=== PATIENT | male | born 1930 | race Caucasian/White ===

== ENCOUNTER 2018-08-26 11:50 | Inpatient (IN) | payer MEDICARE, OTHER ==
[~2018-08-26] VITALS: Ht 193 cm; Wt 123.5 kg
[2018-08-26] MEDS ORDERED: aspirin 325mg tablet PO ONE (12:20)
[2018-08-26] MEDS ORDERED: nitroGLYCERIN 0.4mg SUBLingual tab SL PRN ×3 (12:20→14:05)
[2018-08-26] MEDS ORDERED: ondansetron/PF 4mg/2ml inj IV ONE (12:20)
[2018-08-26 12:38] LABS: BASOPHILS % (AUTO) 0.2 % (0-1); EOSINOPHILS # (AUTO) 0.3 X10'3 (0-0.9); EOSINOPHILS % (AUTO) 2.6 % (0-6); HEMATOCRIT 38.4 % (42.0-52.0); HEMOGLOBIN 12.8 g/dl (14.0-17.9); LYMPHOCYTES # (AUTO) 2.1 X10'3 (1.1-4.8); LYMPHOCYTES % (AUTO) 20.9 % (21-51); MEAN CORPUSCULAR HEMOGLOBIN 31.8 PG (27.0-31.0); MEAN CORPUSCULAR HGB CONC 33.4 % (33.0-36.5); MEAN CORPUSCULAR VOLUME 95.3 FL (78-98); MEAN PLATELET VOLUME 8.7 FL (7.4-10.4); MONOCYTES # (AUTO) 0.7 X10'3 (0-0.9); MONOCYTES % (AUTO) 7.4 % (2-12); NEUTROPHILS # (AUTO) 6.8 X10'3 (1.8-7.7); NEUTROPHILS % (AUTO) 68.9 % (42-75); PLATELET COUNT 265 X10'3 (140-440); RED BLOOD COUNT 4.02 X10'6 (4.70-6.10); RED CELL DISTRIBUTION WIDTH 13.9 % (11.5-14.5); WHITE BLOOD COUNT 9.9 X10'3 (4.5-11.0)
[2018-08-26 12:59] LABS: D-DIMER 3.64 MG/L FEU (0-0.50); INR 1.1 INR; PARTIAL THROMBOPLASTIN TIME 32 SECONDS (22-32); PROTHROMBIN TIME 11.1 SECONDS (9.0-12.0)
[2018-08-26 13:07] LABS: ANION GAP 9 (8-16); BLOOD UREA NITROGEN 34 MG/DL (7-18); CHLORIDE 103 MMOL/L (99-107); GLUCOSE 133 MG/DL (70-104); POTASSIUM 5.2 MMOL/L (3.5-5.1); SODIUM 139 MMOL/L (135-145); TOTAL CARBON DIOXIDE 27.3 MMOL/L (24-32)
[2018-08-26 13:08] LABS: ALANINE AMINOTRANSFERASE 17 U/L (12-78); ALBUMIN 3.5 G/DL (3.4-5.0); ALKALINE PHOSPHATASE 62 IU/L (46-116); ASPARTATE AMINO TRANSFERASE 15 U/L (10-37); BILIRUBIN,TOTAL 0.9 MG/DL (0.1-1.0); BUN/CREATININE RATIO 13.6 (5.4-32.0); CALCIUM 8.9 MG/DL (8.5-10.1); TOTAL PROTEIN 7.1 G/DL (6.4-8.2); eGFR 25 ML/MIN
[2018-08-26] MEDS ORDERED: heparin 10,000 units/1 ML INJ IV PRN ×2 (13:35→14:05)
[2018-08-26] MEDS ORDERED: fentaNYL/PF 50MCG/1 ML 2ML syringe IV ONE (13:35)
[2018-08-26] MEDS ORDERED: heparin 10,000 units/1 ML INJ IV ONE (13:35)
[2018-08-26] MEDS: heparin 25,000 UNIT/250ml bag 250 ML IV SCH ×2 (13:52→22:04)
[2018-08-26] MEDS ORDERED: heparin 25,000 UNIT/250ml bag 250 ML IV SCH (14:02)
[2018-08-26] MEDS ORDERED: magnesium Cl slow-release 64mg tablet PO PRN (14:05)
[2018-08-26] MEDS ORDERED: morphine 2 MG/ML inj. syringe IV PRN ×2 (14:05)
[2018-08-26] MEDS ORDERED: magnesium 4gm in 100ml NS 100 ML IV PRN (14:05)
[2018-08-26] MEDS ORDERED: potassium Cl 20 mEq SR tablet PO PRN ×2 (14:05)
[2018-08-26] MEDS ORDERED: acetaminophen 325mg tablet PO PRN ×2 (14:05)
[2018-08-26] MEDS ORDERED: potassium Cl 40MEQ/NS 500ml 500 ML IV PRN ×2 (14:05)
[2018-08-26] MEDS ORDERED: magnesium hydroxide 30ml (MOM) UD suspension PO PRN (14:05)
[2018-08-26] MEDS ORDERED: regadenoson 0.4mg/5ml syringe IV PRN (14:05)
[2018-08-26] MEDS ORDERED: magnesium 1gm/100ml D5W IVPB 100 ML IV PRN (14:05)
[2018-08-26] MEDS ORDERED: aminophylline 250mg/10ml inj. IV PRN (14:05)
[2018-08-26] MEDS ORDERED: metoprolol tartrate 1mg/ml inj IV PRN (14:05)
[2018-08-26] MEDS: normal saline 1000ml 1,000 ML IV SCH (14:35)
[2018-08-26] MEDS ORDERED: ATOR20TA PO (15:32)
[2018-08-26] MEDS ORDERED: LEVO125T PO (15:32)
[2018-08-26] MEDS ORDERED: FAMO-128 PO (15:33)
[2018-08-26] MEDS ORDERED: CLOP75TA15 PO (15:33)
[2018-08-26] MEDS ORDERED: RAMI2.5C2 PO (15:34)
[2018-08-26] MEDS ORDERED: DRON400T2 PO (15:35)
[2018-08-26] MEDS ORDERED: DABI75CA3 PO (15:35)
[2018-08-26] MEDS ORDERED: CARV-50 PO (15:36)
[2018-08-26] MEDS ORDERED: B CO1TAB7 PO (15:37)
[2018-08-26] MEDS ORDERED: [UNRECOGNIZED DRUG - CODE] (15:37)
[2018-08-26] MEDS ORDERED: PSYL3.4P5 PO (15:39)
[2018-08-26] MEDS ORDERED: VIT1CAPS46 PO (15:39)
[2018-08-26 15:41] LABS: CLARITY,URINE CLEAR (Clear); COLOR,URINE YELLOW (Yellow); GLUCOSE, URINE NEGATIVE (Neg); KETONES,URINE NEGATIVE (Neg); LEUKOCYTE ESTERASE ,URINE NEGATIVE (Neg); NITRITES, URINE NEGATIVE (Neg); OCCULT BLOOD,URINE NEGATIVE (Neg); PH,URINE 5.5 (4.8-8.0); PROTEIN,URINE 30 mg/dl (Neg); UROBILINOGEN,URINE 0.2 E.U/dL (0.2-1.0)
[2018-08-26 15:42] LABS: UA COLLECTION TYPE CLN CATCH MIDSTREAM
[2018-08-26 15:51] LABS: HYALINE CASTS 0-3 /LPF (NEGATIVE); MUCUS STRANDS FEW /LPF (Neg); SQUAMOUS EPITHELIAL CELL,UR FEW /LPF (FEW)
[2018-08-26 15:52] LABS: BACTERIA,URINE NONE SEEN /HPF (Neg); RBC,URINE 0-2 /HPF (0-2); WBC,URINE 0-4 /HPF (0-4)
[2018-08-26 17:00] VITALS: BP 112/79
[2018-08-26] MEDS ORDERED: tirofiban 5mg in NS 100mL 100 ML IV SCH (18:35)
[2018-08-26] MEDS: tirofiban 5mg in NS 100mL 100 ML IV SCH ×2 (18:50→19:36)
[2018-08-26 19:00] VITALS: BP 116/71
[2018-08-26] MEDS: famotidine 20mg tablet PO SCH (19:50)
[2018-08-26] MEDS: beta-carotene(A) w/C & E + minerals tab PO SCH (19:51)
[2018-08-26] MEDS: dronedarone hcl 400mg tablet PO SCH (19:51)
[2018-08-26] MEDS: carVEDilol 12.5mg tablet PO SCH (19:52)
[2018-08-26] MEDS: lisinopril 5mg tablet PO SCH (19:53)
[2018-08-26] MEDS ORDERED: temazepam 15mg capsule PO PRN (21:00)
[2018-08-26 23:00] VITALS: BP 111/77
[2018-08-27] VITALS (18 sets, daily range): BP systolic 77–162; BP diastolic 52–96
[2018-08-27 00:58] LABS: BASOPHILS % (AUTO) 0.2 % (0-1); EOSINOPHILS # (AUTO) 0.1 X10'3 (0-0.9); EOSINOPHILS % (AUTO) 1.4 % (0-6); HEMATOCRIT 36.3 % (42.0-52.0); HEMOGLOBIN 12.5 g/dl (14.0-17.9); LYMPHOCYTES # (AUTO) 2.1 X10'3 (1.1-4.8); LYMPHOCYTES % (AUTO) 19.6 % (21-51); MEAN CORPUSCULAR HEMOGLOBIN 32.6 PG (27.0-31.0); MEAN CORPUSCULAR HGB CONC 34.4 % (33.0-36.5); MEAN CORPUSCULAR VOLUME 94.7 FL (78-98); MEAN PLATELET VOLUME 9.3 FL (7.4-10.4); MONOCYTES # (AUTO) 0.8 X10'3 (0-0.9); MONOCYTES % (AUTO) 7.1 % (2-12); NEUTROPHILS # (AUTO) 7.6 X10'3 (1.8-7.7); NEUTROPHILS % (AUTO) 71.7 % (42-75); PLATELET COUNT 239 X10'3 (140-440); RED BLOOD COUNT 3.83 X10'6 (4.70-6.10); RED CELL DISTRIBUTION WIDTH 13.2 % (11.5-14.5); WHITE BLOOD COUNT 10.6 X10'3 (4.5-11.0)
[2018-08-27 01:06] LABS: ALBUMIN 3.2 G/DL (3.4-5.0); ANION GAP 10 (8-16); BLOOD UREA NITROGEN 35 MG/DL (7-18); BUN/CREATININE RATIO 13.3 (5.4-32.0); CALCIUM 8.1 MG/DL (8.5-10.1); CHLORIDE 102 MMOL/L (99-107); CHOL/HDL RATIO 2.2 (0.00-4.99); CHOLESTEROL 89 MG/DL (0-200); CREATININE 2.64 MG/DL (0.60-1.10); GLUCOSE 109 MG/DL (70-104); HDL CHOLESTEROL 41 MG/DL (35-60); LDL CHOLESTEROL 36 MG/DL (50-100); POTASSIUM 4.3 MMOL/L (3.5-5.1); SODIUM 139 MMOL/L (135-145); TOTAL CARBON DIOXIDE 26.7 MMOL/L (24-32); TRIGLYCERIDES 129 MG/DL (20-135); eGFR 23 ML/MIN
[2018-08-27] MEDS ORDERED: sodium bicarbonate (8.4%) 1 mEq/ml syringe IV SCH (01:45)
[2018-08-27] MEDS ORDERED: acetylcysteine 200 MG/ml 4ml vial PO ONE (01:55)
[2018-08-27] MEDS: sodium bicarbonate (8.4%) inj. 150 MEQ in sodium chloride 0.45% 1,000 ML IV SCH ×2 (02:40→17:34)
[2018-08-27] MEDS: tirofiban 5mg in NS 100mL 100 ML IV SCH ×3 (06:00→23:03)
[2018-08-27] MEDS ORDERED: nitroGLYCERIN-Tridil 50MG/D5W 250 ML IV ONE (06:18)
[2018-08-27] MEDS ORDERED: midazolam 2 mg/2 ml injection ONE (06:19)
[2018-08-27] MEDS ORDERED: iohexol 350MG/ML 100ml bottle IV ONE ×2 (06:19→07:19)
[2018-08-27] MEDS ORDERED: LIDOcaine 1% (10mg/ml)w/preservative injection 20ml MDV ONE (06:19)
[2018-08-27] MEDS ORDERED: fentaNYL/PF 50MCG/1 ML 2ML syringe ONE (06:19)
[2018-08-27] MEDS ORDERED: heparin 1,000unit/ml 10ml vial 10 ML ONE ×2 (06:19→08:32)
[2018-08-27] MEDS ORDERED: iohexol 350 MG/ML 50ML vial IV ONE ×2 (06:19→08:06)
[2018-08-27] MEDS: psyllium seed 3.4 gm packet PO SCH (08:00)
[2018-08-27] MEDS: K and/or MAG REPLACEMENT MC SCH (08:00)
[2018-08-27] MEDS ORDERED: clopidogrel 75mg tablet PO SCH (08:00)
[2018-08-27] MEDS ORDERED: DOBUTamine-DoBUTrex 500mg/D5W 250 ML IV ONE (08:21)
[2018-08-27] MEDS ORDERED: aspirin 325mg tablet PO SCH (08:30)
[2018-08-27] MEDS ORDERED: ticagrelor 90mg tablet ONE (08:32)
[2018-08-27 09:06] LABS: ISTAT Hct MIX 30 %PCV (42-52); ISTAT O2 SATURATION MIX VENOUS 47 % (60-80); ISTAT SOURCE MIX
[2018-08-27 09:06] LABS: ISTAT HGB ART 10.5 g/dl (14.0-18.0); ISTAT Hct ART 31 %PCV (42-52); ISTAT O2 SATURATION ARTERIAL 95 % (95-98); ISTAT SOURCE ART
[2018-08-27 12:08] LABS: CHOL/HDL RATIO 2.4 (0.00-4.99); CHOLESTEROL 86 MG/DL (0-200); HDL CHOLESTEROL 36 MG/DL (35-60); LDL CHOLESTEROL 32 MG/DL (50-100); TRIGLYCERIDES 135 MG/DL (20-135)
[2018-08-27] MEDS: DOBUTamine 2000 MCG/250ML BAG IV SCH ×2 (12:56→20:27)
[2018-08-27] MEDS: carVEDilol 12.5mg tablet PO SCH ×2 (13:05→20:00)
[2018-08-27] MEDS: atorvastatin 20mg tablet PO SCH (13:05)
[2018-08-27] MEDS: famotidine 20mg tablet PO SCH ×2 (13:05→20:23)
[2018-08-27] MEDS: beta-carotene(A) w/C & E + minerals tab PO SCH ×2 (13:05→20:31)
[2018-08-27] MEDS: levoTHYROXINE 125mcg tablet PO SCH (13:06)
[2018-08-27] MEDS: lisinopril 5mg tablet PO SCH ×2 (13:06→20:00)
[2018-08-27] MEDS ORDERED: aspirin 81mg tab.chew PO ONE (13:25)
[2018-08-27] MEDS: dronedarone hcl 400mg tablet PO SCH ×2 (14:26→20:22)
[2018-08-27] MEDS: acetylcysteine 200 MG/ml 4ml vial PO SCH ×2 (14:27→20:24)
[2018-08-27] MEDS: ticagrelor 90mg tablet PO SCH (20:22)
[2018-08-27] MEDS: ondansetron/PF 4mg/2ml inj IV PRN (21:13)
[2018-08-27] MEDS: mag hydrox/Alum hydrox/simeth 30ml oral suspension PO PRN (22:10)
[2018-08-28] VITALS (24 sets, daily range): BP systolic 80–104; BP diastolic 55–68
[2018-08-28 02:44] LABS: BASOPHILS % (AUTO) 0 % (0-1); EOSINOPHILS # (AUTO) 0.1 X10'3 (0-0.9); EOSINOPHILS % (AUTO) 1.3 % (0-6); HEMATOCRIT 28.8 % (42.0-52.0); HEMOGLOBIN 9.7 g/dl (14.0-17.9); LYMPHOCYTES # (AUTO) 0.7 X10'3 (1.1-4.8); LYMPHOCYTES % (AUTO) 7.4 % (21-51); MEAN CORPUSCULAR HEMOGLOBIN 31.9 PG (27.0-31.0); MEAN CORPUSCULAR HGB CONC 33.8 % (33.0-36.5); MEAN CORPUSCULAR VOLUME 94.3 FL (78-98); MEAN PLATELET VOLUME 9.1 FL (7.4-10.4); MONOCYTES # (AUTO) 0.6 X10'3 (0-0.9); MONOCYTES % (AUTO) 6.2 % (2-12); NEUTROPHILS # (AUTO) 8.2 X10'3 (1.8-7.7); NEUTROPHILS % (AUTO) 85.1 % (42-75); PLATELET COUNT 205 X10'3 (140-440); RED BLOOD COUNT 3.06 X10'6 (4.70-6.10); WHITE BLOOD COUNT 9.6 X10'3 (4.5-11.0)
[2018-08-28 03:04] LABS: ALBUMIN 2.6 G/DL (3.4-5.0); ANION GAP 9 (8-16); BLOOD UREA NITROGEN 34 MG/DL (7-18); BUN/CREATININE RATIO 13.5 (5.4-32.0); CALCIUM 7.7 MG/DL (8.5-10.1); CHLORIDE 102 MMOL/L (99-107); CHOL/HDL RATIO 2.5 (0.00-4.99); CHOLESTEROL 80 MG/DL (0-200); CREATININE 2.52 MG/DL (0.60-1.10); GLUCOSE 133 MG/DL (70-104); HDL CHOLESTEROL 32 MG/DL (35-60); LDL CHOLESTEROL 34 MG/DL (50-100); POTASSIUM 4.1 MMOL/L (3.5-5.1); SODIUM 140 MMOL/L (135-145); TOTAL CARBON DIOXIDE 29.2 MMOL/L (24-32); TRIGLYCERIDES 124 MG/DL (20-135); eGFR 24 ML/MIN
[2018-08-28] MEDS: K and/or MAG REPLACEMENT MC SCH (08:00)
[2018-08-28] MEDS: lisinopril 5mg tablet PO SCH ×2 (08:00→20:00)
[2018-08-28] MEDS: carVEDilol 12.5mg tablet PO SCH ×2 (08:00→20:00)
[2018-08-28] MEDS: psyllium seed 3.4 gm packet PO SCH (08:12)
[2018-08-28] MEDS: beta-carotene(A) w/C & E + minerals tab PO SCH ×2 (08:12→20:31)
[2018-08-28] MEDS: famotidine 20mg tablet PO SCH ×2 (08:12→20:31)
[2018-08-28] MEDS: sodium bicarbonate (8.4%) inj. 150 MEQ in sodium chloride 0.45% 1,000 ML IV SCH (08:12)
[2018-08-28] MEDS: dronedarone hcl 400mg tablet PO SCH ×2 (08:12→20:31)
[2018-08-28] MEDS: atorvastatin 20mg tablet PO SCH (08:13)
[2018-08-28] MEDS: ticagrelor 90mg tablet PO SCH ×2 (08:13→20:31)
[2018-08-28] MEDS: levoTHYROXINE 125mcg tablet PO SCH (08:13)
[2018-08-28] MEDS: aspirin 81mg tab.chew PO SCH (08:13)
[2018-08-28] MEDS: acetylcysteine 200 MG/ml 4ml vial PO SCH ×2 (08:14→20:32)
[2018-08-28] MEDS: tirofiban 5mg in NS 100mL 100 ML IV SCH (08:19)
[2018-08-28] MEDS: DOBUTamine 2000 MCG/250ML BAG IV SCH (12:41)
[2018-08-28] MEDS: normal saline 1000ml 1,000 ML IV SCH (14:02)
[2018-08-28] MEDS: mag hydrox/Alum hydrox/simeth 30ml oral suspension PO PRN (20:43)
[2018-08-29] VITALS (19 sets, daily range): BP systolic 87–113; BP diastolic 45–74
[2018-08-29] MEDS: tirofiban 5mg in NS 100mL 100 ML IV SCH (03:15)
[2018-08-29] MEDS: DOBUTamine 2000 MCG/250ML BAG IV SCH (03:56)
[2018-08-29 05:05] LABS: BASOPHILS % (AUTO) 0.2 % (0-1); EOSINOPHILS # (AUTO) 0.2 X10'3 (0-0.9); EOSINOPHILS % (AUTO) 2.1 % (0-6); HEMATOCRIT 26.7 % (42.0-52.0); HEMOGLOBIN 8.9 g/dl (14.0-17.9); LYMPHOCYTES # (AUTO) 1.5 X10'3 (1.1-4.8); LYMPHOCYTES % (AUTO) 15.4 % (21-51); MEAN CORPUSCULAR HEMOGLOBIN 31.8 PG (27.0-31.0); MEAN CORPUSCULAR HGB CONC 33.3 % (33.0-36.5); MEAN CORPUSCULAR VOLUME 95.4 FL (78-98); MEAN PLATELET VOLUME 9.1 FL (7.4-10.4); MONOCYTES % (AUTO) 10.3 % (2-12); NEUTROPHILS # (AUTO) 6.9 X10'3 (1.8-7.7); PLATELET COUNT 190 X10'3 (140-440); RED BLOOD COUNT 2.79 X10'6 (4.70-6.10); RED CELL DISTRIBUTION WIDTH 14.1 % (11.5-14.5); WHITE BLOOD COUNT 9.6 X10'3 (4.5-11.0)
[2018-08-29 05:33] LABS: ALBUMIN 2.7 G/DL (3.4-5.0); ANION GAP 8 (8-16); BLOOD UREA NITROGEN 38 MG/DL (7-18); BUN/CREATININE RATIO 14.6 (5.4-32.0); CALCIUM 8.2 MG/DL (8.5-10.1); CHLORIDE 100 MMOL/L (99-107); CREATININE 2.61 MG/DL (0.60-1.10); GLUCOSE 101 MG/DL (70-104); MAGNESIUM 2.2 MG/DL (1.5-2.4); POTASSIUM 3.8 MMOL/L (3.5-5.1); SODIUM 136 MMOL/L (135-145); eGFR 23 ML/MIN
[2018-08-29] MEDS: K and/or MAG REPLACEMENT MC SCH (07:08)
[2018-08-29] MEDS: famotidine 20mg tablet PO SCH ×2 (07:41→21:10)
[2018-08-29] MEDS: dronedarone hcl 400mg tablet PO SCH ×2 (07:41→21:09)
[2018-08-29] MEDS: ticagrelor 90mg tablet PO SCH ×2 (07:41→21:09)
[2018-08-29] MEDS: aspirin 81mg tab.chew PO SCH (07:41)
[2018-08-29] MEDS: atorvastatin 20mg tablet PO SCH (07:41)
[2018-08-29] MEDS: beta-carotene(A) w/C & E + minerals tab PO SCH ×2 (07:42→21:09)
[2018-08-29] MEDS: psyllium seed 3.4 gm packet PO SCH (07:42)
[2018-08-29] MEDS: acetylcysteine 200 MG/ml 4ml vial PO SCH ×2 (07:42→21:10)
[2018-08-29] MEDS: levoTHYROXINE 125mcg tablet PO SCH (07:42)
[2018-08-29] MEDS: lisinopril 5mg tablet PO SCH ×2 (08:00→21:09)
[2018-08-29] MEDS: carVEDilol 12.5mg tablet PO SCH ×2 (08:00→21:10)
[2018-08-29] MEDS ORDERED: DOBUTamine-DoBUTrex 500mg/D5W 250 ML IV ONE (09:14)
[2018-08-29] MEDS: mag hydrox/Alum hydrox/simeth 30ml oral suspension PO PRN ×2 (17:09→21:07)
[2018-08-29] MEDS: apixaban 5mg tablet PO SCH (21:10)
[2018-08-30] VITALS (18 sets, daily range): BP systolic 84–139; BP diastolic 53–99
[2018-08-30 02:08] LABS: HEMATOCRIT 28.2 % (42.0-52.0); HEMOGLOBIN 9.6 g/dl (14.0-17.9); MEAN CORPUSCULAR HEMOGLOBIN 32.4 PG (27.0-31.0); MEAN CORPUSCULAR HGB CONC 33.9 % (33.0-36.5); MEAN CORPUSCULAR VOLUME 95.7 FL (78-98); MEAN PLATELET VOLUME 9.1 FL (7.4-10.4); PLATELET COUNT 205 X10'3 (140-440); RED BLOOD COUNT 2.95 X10'6 (4.70-6.10); RED CELL DISTRIBUTION WIDTH 12.9 % (11.5-14.5)
[2018-08-30 02:23] LABS: ALBUMIN 2.9 G/DL (3.4-5.0); ANION GAP 9 (8-16); BLOOD UREA NITROGEN 39 MG/DL (7-18); BUN/CREATININE RATIO 13.9 (5.4-32.0); CALCIUM 8.3 MG/DL (8.5-10.1); CHLORIDE 98 MMOL/L (99-107); CREATININE 2.81 MG/DL (0.60-1.10); GLUCOSE 114 MG/DL (70-104); MAGNESIUM 2.3 MG/DL (1.5-2.4); POTASSIUM 4.3 MMOL/L (3.5-5.1); SODIUM 134 MMOL/L (135-145); TOTAL CARBON DIOXIDE 27.3 MMOL/L (24-32); eGFR 21 ML/MIN
[2018-08-30 07:38] LABS: BASOPHILS % (AUTO) 0.4 % (0-1); EOSINOPHILS # (AUTO) 0.2 X10'3 (0-0.9); EOSINOPHILS % (AUTO) 1.8 % (0-6); HEMATOCRIT 27.6 % (42.0-52.0); HEMOGLOBIN 9.2 g/dl (14.0-17.9); LYMPHOCYTES # (AUTO) 1.5 X10'3 (1.1-4.8); LYMPHOCYTES % (AUTO) 14.3 % (21-51); MEAN CORPUSCULAR HEMOGLOBIN 31.7 PG (27.0-31.0); MEAN CORPUSCULAR HGB CONC 33.1 % (33.0-36.5); MEAN CORPUSCULAR VOLUME 95.6 FL (78-98); MEAN PLATELET VOLUME 9.3 FL (7.4-10.4); MONOCYTES % (AUTO) 9.4 % (2-12); NEUTROPHILS # (AUTO) 7.9 X10'3 (1.8-7.7); NEUTROPHILS % (AUTO) 74.1 % (42-75); PLATELET COUNT 217 X10'3 (140-440); RED BLOOD COUNT 2.89 X10'6 (4.70-6.10); RED CELL DISTRIBUTION WIDTH 13.8 % (11.5-14.5); WHITE BLOOD COUNT 10.7 X10'3 (4.5-11.0)
[2018-08-30] MEDS: carVEDilol 12.5mg tablet PO SCH ×2 (08:00→09:33)
[2018-08-30] MEDS: lisinopril 5mg tablet PO SCH (08:00)
[2018-08-30] MEDS: beta-carotene(A) w/C & E + minerals tab PO SCH ×2 (08:22→20:06)
[2018-08-30] MEDS: atorvastatin 20mg tablet PO SCH (08:23)
[2018-08-30] MEDS: apixaban 5mg tablet PO SCH ×2 (08:23→20:06)
[2018-08-30] MEDS: aspirin 81mg tab.chew PO SCH (08:23)
[2018-08-30] MEDS: ticagrelor 90mg tablet PO SCH ×2 (08:24→20:07)
[2018-08-30] MEDS: famotidine 20mg tablet PO SCH ×2 (08:24→20:06)
[2018-08-30] MEDS: levoTHYROXINE 125mcg tablet PO SCH (08:25)
[2018-08-30] MEDS: psyllium seed 3.4 gm packet PO SCH (08:26)
[2018-08-30] MEDS: K and/or MAG REPLACEMENT MC SCH (08:28)
[2018-08-30] MEDS: dronedarone hcl 400mg tablet PO SCH (09:33)
[2018-08-30] MEDS: mag hydrox/Alum hydrox/simeth 30ml oral suspension PO PRN (10:48)
[2018-08-30] MEDS: normal saline 1000ml 1,000 ML IV SCH (14:32)
[2018-08-30] MEDS: DOBUTamine-DoBUTrex 500mg/D5W 250 ML IV SCH (16:57)
[2018-08-30] MEDS ORDERED: furosemide 20 MG/2 ML vial IV ONE (19:25)
[2018-08-30] MEDS: carVEDilol 3.125mg tablet PO SCH (20:00)
[2018-08-30] MEDS ORDERED: carvedilol 6.25mg tablet PO SCH (20:00)
[2018-08-30] MEDS: amiodarone 200mg tablet PO SCH (20:06)
[2018-08-30] MEDS: ferrous sulfate 325mg tablet PO SCH (20:06)
[2018-08-31] VITALS (15 sets, daily range): BP systolic 80–116; BP diastolic 42–73
[2018-08-31] MEDS: DOBUTamine-DoBUTrex 500mg/D5W 250 ML IV SCH ×2 (05:27→20:55)
[2018-08-31 06:00] LABS: BASOPHILS % (AUTO) 0.2 % (0-1); EOSINOPHILS # (AUTO) 0.3 X10'3 (0-0.9); EOSINOPHILS % (AUTO) 2.8 % (0-6); HEMATOCRIT 27.9 % (42.0-52.0); HEMOGLOBIN 9.3 g/dl (14.0-17.9); LYMPHOCYTES # (AUTO) 1.2 X10'3 (1.1-4.8); LYMPHOCYTES % (AUTO) 12.3 % (21-51); MEAN CORPUSCULAR HEMOGLOBIN 31.7 PG (27.0-31.0); MEAN CORPUSCULAR HGB CONC 33.2 % (33.0-36.5); MEAN CORPUSCULAR VOLUME 95.6 FL (78-98); MONOCYTES # (AUTO) 0.8 X10'3 (0-0.9); MONOCYTES % (AUTO) 8.9 % (2-12); NEUTROPHILS # (AUTO) 7.1 X10'3 (1.8-7.7); NEUTROPHILS % (AUTO) 75.8 % (42-75); PLATELET COUNT 229 X10'3 (140-440); RED BLOOD COUNT 2.92 X10'6 (4.70-6.10); RED CELL DISTRIBUTION WIDTH 13.8 % (11.5-14.5); WHITE BLOOD COUNT 9.4 X10'3 (4.5-11.0)
[2018-08-31 06:31] LABS: ALBUMIN 3.1 G/DL (3.4-5.0); ANION GAP 7 (8-16); BLOOD UREA NITROGEN 48 MG/DL (7-18); BUN/CREATININE RATIO 15.3 (5.4-32.0); CALCIUM 8.4 MG/DL (8.5-10.1); CHLORIDE 97 MMOL/L (99-107); CREATININE 3.13 MG/DL (0.60-1.10); GLUCOSE 107 MG/DL (70-104); MAGNESIUM 2.6 MG/DL (1.5-2.4); POTASSIUM 4.2 MMOL/L (3.5-5.1); SODIUM 132 MMOL/L (135-145); TOTAL CARBON DIOXIDE 28.1 MMOL/L (24-32); eGFR 19 ML/MIN
[2018-08-31] MEDS: K and/or MAG REPLACEMENT MC SCH (08:08)
[2018-08-31] MEDS: psyllium seed 3.4 gm packet PO SCH (08:26)
[2018-08-31] MEDS: beta-carotene(A) w/C & E + minerals tab PO SCH ×2 (08:27→20:56)
[2018-08-31] MEDS: amiodarone 200mg tablet PO SCH (08:27)
[2018-08-31] MEDS: ferrous sulfate 325mg tablet PO SCH ×2 (08:27→20:56)
[2018-08-31] MEDS: apixaban 5mg tablet PO SCH ×2 (08:27→20:55)
[2018-08-31] MEDS: ticagrelor 90mg tablet PO SCH ×2 (08:28→20:55)
[2018-08-31] MEDS: famotidine 20mg tablet PO SCH ×2 (08:28→20:56)
[2018-08-31] MEDS: carVEDilol 3.125mg tablet PO SCH ×2 (08:28→20:55)
[2018-08-31] MEDS: atorvastatin 20mg tablet PO SCH (08:29)
[2018-08-31] MEDS: aspirin 81mg tab.chew PO SCH (08:29)
[2018-08-31] MEDS: levoTHYROXINE 125mcg tablet PO SCH (08:29)
[2018-08-31] MEDS ORDERED: furosemide 20 MG/2 ML vial IV ONE (12:55)
[2018-09-01] VITALS (12 sets, daily range): BP systolic 103–128; BP diastolic 54–85
[2018-09-01 06:34] LABS: ALBUMIN 2.8 G/DL (3.4-5.0); ANION GAP 9 (8-16); BLOOD UREA NITROGEN 47 MG/DL (7-18); BUN/CREATININE RATIO 15.6 (5.4-32.0); CALCIUM 8.4 MG/DL (8.5-10.1); CHLORIDE 96 MMOL/L (99-107); CREATININE 3.02 MG/DL (0.60-1.10); GLUCOSE 114 MG/DL (70-104); MAGNESIUM 2.3 MG/DL (1.5-2.4); POTASSIUM 3.8 MMOL/L (3.5-5.1); SODIUM 132 MMOL/L (135-145); TOTAL CARBON DIOXIDE 26.7 MMOL/L (24-32); eGFR 20 ML/MIN
[2018-09-01] MEDS: K and/or MAG REPLACEMENT MC SCH ×2 (07:37→09:17)
[2018-09-01] MEDS ORDERED: potassium chloride 10mEq CAPSULE.SA PO SCH (08:00)
[2018-09-01] MEDS: psyllium seed 3.4 gm packet PO SCH (08:00)
[2018-09-01] MEDS: beta-carotene(A) w/C & E + minerals tab PO SCH ×2 (09:27→21:46)
[2018-09-01] MEDS: apixaban 5mg tablet PO SCH ×2 (09:27→21:46)
[2018-09-01] MEDS: amiodarone 200mg tablet PO SCH (09:28)
[2018-09-01] MEDS: ferrous sulfate 325mg tablet PO SCH ×2 (09:28→21:46)
[2018-09-01] MEDS: levoTHYROXINE 125mcg tablet PO SCH (09:28)
[2018-09-01] MEDS: carVEDilol 3.125mg tablet PO SCH ×2 (09:28→21:45)
[2018-09-01] MEDS: famotidine 20mg tablet PO SCH ×2 (09:28→21:45)
[2018-09-01] MEDS: aspirin 81mg tab.chew PO SCH (09:28)
[2018-09-01] MEDS: atorvastatin 20mg tablet PO SCH (09:29)
[2018-09-01] MEDS: DOBUTamine-DoBUTrex 500mg/D5W 250 ML IV SCH ×2 (09:30→21:50)
[2018-09-01] MEDS: ticagrelor 90mg tablet PO SCH ×2 (09:38→21:44)
[2018-09-01] MEDS ORDERED: potassium chloride 10mEq ER tablet PO SCH (11:28)
[2018-09-01] MEDS: furosemide 20MG tablet PO SCH (11:50)
[2018-09-02] VITALS (9 sets, daily range): BP systolic 104–139; BP diastolic 66–97
[2018-09-02] MEDS: mag hydrox/Alum hydrox/simeth 30ml oral suspension PO PRN (03:06)
[2018-09-02 07:42] LABS: MAGNESIUM 2.4 MG/DL (1.5-2.4)
[2018-09-02] MEDS: levoTHYROXINE 125mcg tablet PO SCH (07:58)
[2018-09-02] MEDS: atorvastatin 20mg tablet PO SCH (07:58)
[2018-09-02] MEDS: aspirin 81mg tab.chew PO SCH (07:58)
[2018-09-02] MEDS: apixaban 5mg tablet PO SCH (07:58)
[2018-09-02] MEDS: ferrous sulfate 325mg tablet PO SCH (07:58)
[2018-09-02] MEDS: furosemide 20MG tablet PO SCH (07:58)
[2018-09-02] MEDS: amiodarone 200mg tablet PO SCH (07:58)
[2018-09-02] MEDS: famotidine 20mg tablet PO SCH (07:58)
[2018-09-02] MEDS: beta-carotene(A) w/C & E + minerals tab PO SCH (07:58)
[2018-09-02] MEDS: psyllium seed 3.4 gm packet PO SCH (07:59)
[2018-09-02] MEDS: carVEDilol 3.125mg tablet PO SCH (07:59)
[2018-09-02] MEDS: ticagrelor 90mg tablet PO SCH (08:00)
[2018-09-02] MEDS ORDERED: apixaban 2.5mg tablet PO SCH (08:00)
[2018-09-02] MEDS: ondansetron/PF 4mg/2ml inj IV PRN (08:59)
[2018-09-02 10:03] LABS: ALBUMIN 2.9 G/DL (3.4-5.0); ANION GAP 9 (8-16); BLOOD UREA NITROGEN 41 MG/DL (7-18); BUN/CREATININE RATIO 15.2 (5.4-32.0); CALCIUM 7.7 MG/DL (8.5-10.1); CHLORIDE 93 MMOL/L (99-107); GLUCOSE 123 MG/DL (70-104); POTASSIUM 3.8 MMOL/L (3.5-5.1); SODIUM 129 MMOL/L (135-145); TOTAL CARBON DIOXIDE 27.4 MMOL/L (24-32); eGFR 22 ML/MIN
[2018-09-02] MEDS ORDERED: lactulose 20gm/30ml cup PO ONE (10:30)
[2018-09-02] MEDS: DOBUTamine-DoBUTrex 500mg/D5W 250 ML IV SCH (11:16)
== END 2018-09-02 15:00 | DRG 246 ==
LOC: ER 11:50 → ED HOLD 14:02 → OBSVTOIN 14:02 → PCU 3S 16:00 → CICU 2S 08-27 08:51 → PCU 3S 08-29 12:20
PROVIDERS: ADMIT Family Medicine; ATTEND Family Medicine
PROC: CB121ZZ Planar Nuclear Medicine Imaging of Lungs and Bronchi using Technetium 99m (Tc-99m) (ICD-10-PCS; 2018-08-26)
PROC: 4A023N8 Measurement of Cardiac Sampling and Pressure, Bilateral, Percutaneous Approach (ICD-10-PCS; principal; 2018-08-27)
PROC: 027034Z Dilation of Coronary Artery, One Artery with Drug-eluting Intraluminal Device, Percutaneous Approach (ICD-10-PCS; 2018-08-27)
PROC: 02703ZZ Dilation of Coronary Artery, One Artery, Percutaneous Approach (ICD-10-PCS; 2018-08-27)
PROC: B2111ZZ Fluoroscopy of Multiple Coronary Arteries using Low Osmolar Contrast (ICD-10-PCS; 2018-08-27)
PROC: B2151ZZ Fluoroscopy of Left Heart using Low Osmolar Contrast (ICD-10-PCS; 2018-08-27)
DX: I21.4 Non-ST elevation (NSTEMI) myocardial infarction (principal); I50.23 Acute on chronic systolic (congestive) heart failure; I13.0 Hypertensive heart and chronic kidney disease with heart failure and stage 1 through stage 4 chronic kidney disease, or unspecified chronic kidney disease; I42.9 Cardiomyopathy, unspecified; I48.0 Paroxysmal atrial fibrillation; E66.9 Obesity, unspecified; M19.90 Unspecified osteoarthritis, unspecified site; N18.9 Chronic kidney disease, unspecified; E03.9 Hypothyroidism, unspecified; E11.22 Type 2 diabetes mellitus with diabetic chronic kidney disease; I95.9 Hypotension, unspecified; D64.9 Anemia, unspecified; E78.5 Hyperlipidemia, unspecified; I25.119 Atherosclerotic heart disease of native coronary artery with unspecified angina pectoris; N40.0 Benign prostatic hyperplasia without lower urinary tract symptoms; Z95.5 Presence of coronary angioplasty implant and graft; Z79.890 Hormone replacement therapy; Z91.14 Patient's other noncompliance with medication regimen; Z98.49 Cataract extraction status, unspecified eye; Z88.2 Allergy status to sulfonamides; Z87.891 Personal history of nicotine dependence; Z92.3 Personal history of irradiation; Z80.3 Family history of malignant neoplasm of breast; Z82.49 Family history of ischemic heart disease and other diseases of the circulatory system; Z79.899 Other long term (current) drug therapy; Z68.33 Body mass index [BMI] 33.0-33.9, adult
CPT/HCPCS: 92921; 93306; 93458; 96374; 96375; 99285; C9600; 36415; 71045; 78582; 80048; 80053; 80061; 81001; 82803; 82948; 83036; 83735; 83880; 84443; 84484; 85014; 85025; 85027; 85347; 85379; 85610; 85730; 87070; 93005; 97110; 97116; 97161; 97530; 99152; 99153; A4620; A6257; A9539; A9540; C1725; C1769; C1874; C1894; G0378; J1250; J1644; J1940; J2001; J2250; J2270; J2405; J3010; J3246; J3490; J7030; Q9967

== ENCOUNTER 2019-04-16 17:06 | Emergency (ER) | payer MEDICARE, OTHER ==
[~2019-04-16] VITALS: Ht 193 cm; Wt 106.8 kg
[~2019-04-16 17:06] MED LIST: ATOR20TA PO; CARV-50 PO; CLOP75TA15 PO; DABI75CA3 PO; DRON400T2 PO; FAMO-128 PO; LEVO125T PO; PSYL3.4P5 PO; RAMI2.5C2 PO; VIT1CAPS46 PO; [UNRECOGNIZED DRUG - CODE]
[2019-04-16 19:21] LABS: BASOPHILS % (AUTO) 0.4 % (0-1); EOSINOPHILS # (AUTO) 0.1 X10'3 (0-0.9); EOSINOPHILS % (AUTO) 1.4 % (0-6); HEMATOCRIT 27.8 % (42.0-52.0); HEMOGLOBIN 9.4 g/dl (14.0-17.9); LYMPHOCYTES # (AUTO) 1.1 X10'3 (1.1-4.8); LYMPHOCYTES % (AUTO) 11.7 % (21-51); MEAN CORPUSCULAR HEMOGLOBIN 30.5 PG (27.0-31.0); MEAN CORPUSCULAR HGB CONC 33.9 g/dL (33.0-36.5); MEAN PLATELET VOLUME 7.7 FL (7.4-10.4); MONOCYTES % (AUTO) 10.4 % (2-12); NEUTROPHILS # (AUTO) 7.1 X10'3 (1.8-7.7); NEUTROPHILS % (AUTO) 76.1 % (42-75); PLATELET COUNT 293 X10'3 (140-440); RED BLOOD COUNT 3.08 X10'6 (4.70-6.10); RED CELL DISTRIBUTION WIDTH 15.1 % (11.5-14.5); WHITE BLOOD COUNT 9.3 X10'3 (4.5-11.0)
[2019-04-16 19:29] LABS: ALANINE AMINOTRANSFERASE 58 U/L (12-78); ALBUMIN 3.4 G/DL (3.4-5.0); ALBUMIN/GLOBULIN RATIO 0.9 (1.1-1.5); ALKALINE PHOSPHATASE 91 IU/L (46-116); ANION GAP 8 (8-16); ASPARTATE AMINO TRANSFERASE 38 U/L (10-37); BILIRUBIN,TOTAL 1.3 MG/DL (0.1-1.0); BLOOD UREA NITROGEN 44 MG/DL (7-18); BUN/CREATININE RATIO 13.2 (5.4-32.0); CALCIUM 9.1 MG/DL (8.5-10.1); CHLORIDE 95 MMOL/L (99-107); CREATININE 3.34 MG/DL (0.60-1.10); GLUCOSE 109 MG/DL (70-104); POTASSIUM 4.4 MMOL/L (3.5-5.1); SODIUM 129 MMOL/L (135-145); TOTAL CARBON DIOXIDE 26.1 MMOL/L (24-32); TOTAL PROTEIN 7.3 G/DL (6.4-8.2); eGFR 18 ML/MIN
[2019-04-16 19:32] LABS: PARTIAL THROMBOPLASTIN TIME 32 SECONDS (22-32)
[2019-04-16] MEDS ORDERED: OCUVITE PO (20:35)
[2019-04-16] MEDS ORDERED: LISI2.5T2 PO (20:35)
[2019-04-16] MEDS ORDERED: FERR325T29 PO (20:35)
[2019-04-16] MEDS ORDERED: FOLI1CAP7 PO (20:35)
[2019-04-16] MEDS ORDERED: NITR0.4T SL (20:35)
[2019-04-16] MEDS ORDERED: CARV3.1244 PO (20:35)
[2019-04-16] MEDS ORDERED: AMIO200T40 PO (20:35)
[2019-04-16] MEDS ORDERED: APIX2.5T PO (20:35)
[2019-04-16] MEDS ORDERED: FURO20TA4 PO (20:35)
[2019-04-16] MEDS ORDERED: POTA10TA15 PO (20:36)
[2019-04-16] MEDS ORDERED: TICA90TA2 PO (20:37)
[2019-04-16] MEDS ORDERED: levoFLOXACIN 250mg tablet PO ONE (21:10)
[2019-04-16] MEDS ORDERED: ALBU8.5H8 INH (21:11)
[2019-04-16] MEDS ORDERED: LEVO500T2 PO (21:11)
[2019-04-16 21:33] VITALS: BP 105/70
== END 2019-04-16 21:36 | disposition home or self-care (01) ==
LOC: ER 17:07
DX: J20.9 Acute bronchitis, unspecified (principal); I48.91 Unspecified atrial fibrillation; I25.10 Atherosclerotic heart disease of native coronary artery without angina pectoris; E11.9 Type 2 diabetes mellitus without complications; Z98.61 Coronary angioplasty status; Z88.2 Allergy status to sulfonamides; Z79.899 Other long term (current) drug therapy
CPT/HCPCS: 36415; 71045; 80053; 83735; 83880; 84484; 85025; 85610; 85730; 93005; 99284